=== PATIENT | male | born 1975 | race Caucasian/White ===

== ENCOUNTER 2018-12-13 10:20 | Emergency (ER) | payer OTHER ==
[~2018-12-13] VITALS: Ht 175.3 cm; Wt 86.2 kg
--- NOTE | 2018-12-13 11:23 | ED Upper Extremity ---
General Chief Complaint: Laceration Stated Complaint: HAND LACERATION Source: patient Exam Limitations: no limitations History of Present Illness Date Seen by Provider: Dec 13, 2018 Time Seen by Provider: 11:21 Initial Comments 43-year-old male who presents to the emergency room with complaints of a laceration to the right hand. He reports that approximately 30 minutes prior to arrival he was hammering a nail into his garage wall when his hand struck a piece of exposed metal on the wall. He has a 2 cm laceration to the dorsal surface of the right hand. He has full movement of the hand. Onset: just prior to arrival Pain/Injury Location: right hand Method of Injury: other (laceration) Allergies and Home Medications Allergies Coded Allergies: Penicillins (Verified Allergy, Unknown, 12/13/18) Patient Home Medication List Home Medication List Reviewed: Yes Review of Systems Constitutional: no symptoms reported, see HPI Skin: see HPI, other (laceration to the top of the right hand.) All Other Systems Reviewed Negative Unless Noted: Yes Past Rjizcex-Pksdqr-Sulchw Hx Past Med/Social Hx: Reviewed Nursing Past Med/Soc Hx Family Medical History Reviewed Nursing Family Hx Physical Exam Vital Signs Vital Signs - First Documented 12/13/18 11:13 Temp 98.9 Pulse 90 Resp 16 B/P (MAP) 167/120 (136) Pulse Ox 99 O2 Delivery Room Air Capillary Refill : Height, Weight, BMI Height: '" Weight: lbs. oz. kg; BMI Method: General Appearance: WD/WN, no apparent distress Cardiovascular: normal peripheral pulses, regular rate, rhythm, no edema, no gallop, no JVD, no murmur Respiratory: chest non-tender, lungs clear, normal breath sounds, no respiratory distress, no accessory muscle use Neurologic/Tendon: normal sensation, normal motor functions, normal tendon functions, responds to pain, no evidence tendon injury, other (normal capillary refill and distal pulses, patient has full mobility of the hand.) Skin: normal color, warm/dry, other (2 cm laceration to the dorsal surface of the right hand.) Lymphatic: no adenopathy Procedures/Interventions Wound Location: Upper Extremities (right hand) Wound Length (cm): 2 Wound's Depth, Shape: superficial, linear Wound Explored: clean Irrigated w/ Saline (ccs): 200 Betadine Prep?: Yes Anesthesia: 1% Lidocaine (3 mL's) Volume Anesthetic (ccs): 3 Wound Debrided: minimal Suture: Prolene Suture Size: 4-0 Number of Sutures: 3 Progress The wound was anesthetized with approximately 3 mL's of lidocaine without epinephrine. The wound was cleaned and irrigated with approximately 200 mL's of normal saline and Betadine. The wound was closed with 3 simple interrupted sutures of 4-0 Prolene. Patient tolerated procedure well. Progress/Results/Core Measures Results/Orders My Orders Orders - ANTIONETTE COFFEY Dipht,Pertuss(Acell),Tet Adult (Boostrix (12/13/18 11:30) Lidocaine 1% Inj 20 Ml (Xylocaine 1% Inj (12/13/18 11:30) Medications Given in ED Current Medications Medications Dose Ordered Sig/Chloé Route Start Time Stop Time Status Last Admin Dose Admin Diphtheria/ Tetanus/Acell Pertussis 0.5 ml ONCE ONCE IM 12/13/18 11:30 12/13/18 11:31 DC 12/13/18 11:42 0.5 ML Lidocaine HCl 20 ml ONCE ONCE INJ 12/13/18 11:30 12/13/18 11:31 DC 12/13/18 11:35 20 ML Vital Signs/I&O 12/13/18 12/13/18 11:13 11:56 Temp 98.9 98.9 Pulse 90 79 Resp 16 16 B/P (MAP) 167/120 (136) 140/93 (109) Pulse Ox 99 99 O2 Delivery Room Air Room Air Departure Impression Primary Impression: Laceration Disposition: 01 HOME, SELF-CARE Condition: Stable/Unchanged Departure-Patient Inst. Decision time for Depature: 11:24 Patient Instructions: Laceration Repair With Stitches (DC) Add. Discharge Instructions: Watch for signs of infection such as increased redness, swelling, drainage, pain. Return back to the emergency room for suture removal in 7 days. Follow-up with your primary care provider as needed. Return back to the emergency room for worsening symptoms or concerns as needed. All discharge instructions reviewed with patient and/or family. Voiced understanding. Images Extremities-Upper 1 - Laceration ANTIONETTE COFFEY Dec 13, 2018 11:23
[2018-12-13] MEDS ORDERED: LIDOCAINE 1% INJ 20 ML 20 ML VIAL INJ ONE (11:30)
[2018-12-13] MEDS ORDERED: TETANUS,DIPTH,PERTUSS P/F (BOOSTRIX) 0.5 ML VIAL IM ONE (11:30)
[2018-12-13 11:56] VITALS: BP 140/93
== END 2018-12-13 11:56 | disposition home or self-care (01) ==
LOC: EDUNIT# 10:20 → ER 10:21
DX: S61.411A Laceration without foreign body of right hand, initial encounter (principal); Z23 Encounter for immunization; W26.8XXA Contact with other sharp object(s), not elsewhere classified, initial encounter
CPT/HCPCS: 12041; 64450; 90715

== ENCOUNTER 2018-12-13 13:17 | Emergency (ER) | payer OTHER ==
[~2018-12-13] VITALS: Ht 177.8 cm; Wt 86.2 kg
[2018-12-13 13:32] VITALS: BP 156/96
== END 2018-12-13 13:32 | disposition home or self-care (01) ==
LOC: EDUNIT# 13:17 → ER 13:18
DX: S61.411A Laceration without foreign body of right hand, initial encounter (principal); X58.XXXA Exposure to other specified factors, initial encounter